=== PATIENT | male | born 1975 | race African-American/Black ===

== ENCOUNTER 2020-11-05 11:36 | Inpatient (IN) | payer OTHER ==
[2020-11-05 12:15] VITALS: BMI 20.2
[2020-11-05] MEDS ORDERED: MAGNESIUM CITRATE 300 ML BOTTLE PO PRN (14:08)
[2020-11-05] MEDS ORDERED: MAG HYDROX/AL HYDROX/SIMETH 30 ML UNIT-DOSE CUP PO PRN (14:08)
[2020-11-05] MEDS ORDERED: BISMUTH SUBSALICYLATE 262 MG/15 ML BTL PO PRN (14:08)
[2020-11-05] MEDS ORDERED: ACETAMINOPHEN 325 MG TABLET (FP) PO PRN ×2 (14:08)
[2020-11-05] MEDS ORDERED: IBUPROFEN 400 MG TABLET (FP) PO PRN (14:08)
[2020-11-05] MEDS ORDERED: ONDANSETRON *ODT* 4 MG TABLET SL PRN (14:08)
[2020-11-05] MEDS ORDERED: diazePAM 5 MG TABLET PO PRN (14:08)
[2020-11-05] MEDS ORDERED: MAGNESIUM HYDROX 2400MG/30ML ORAL SUSPENSION 30 ML CUP PO PRN (14:08)
[2020-11-05] MEDS ORDERED: METHOCARBAMOL 500 MG TABLET PO PRN (14:08)
[2020-11-05] MEDS ORDERED: MENTHOL/PHENOL 1 EACH UD MM PRN (14:08)
[2020-11-05] MEDS: NICOTINE 14 MG/24 HOURS TOPICAL PATCH TD SCH (15:49)
[2020-11-05] MEDS: PRENATAL VITAMINS W/ FOLIC ACID TABLET (FP) PO SCH (15:51)
[2020-11-05] MEDS: diazePAM 5 MG TABLET PO SCH ×2 (17:45→22:13)
[2020-11-05] MEDS: hydrOXYzine PAMOATE 25 MG CAPSULE (FP) PO SCH ×2 (17:46→23:13)
[2020-11-05] MEDS: THIAMINE HCL 100 MG TABLET (FP) PO SCH (22:13)
[2020-11-05] MEDS: MELATONIN 5 MG TABLETS PO SCH (23:12)
[2020-11-06] MEDS: hydrOXYzine PAMOATE 25 MG CAPSULE (FP) PO SCH ×5 (05:47→22:53)
[2020-11-06] MEDS: diazePAM 5 MG TABLET PO SCH ×4 (05:47→22:53)
[2020-11-06] MEDS: PRENATAL VITAMINS W/ FOLIC ACID TABLET (FP) PO SCH (10:22)
[2020-11-06] MEDS: NICOTINE 14 MG/24 HOURS TOPICAL PATCH TD SCH (10:23)
[2020-11-06 13:44] LABS: HEMATOCRIT 45.1 % (35.4-49); HEMOGLOBIN 14.9 GM/dL (11.7-16.9); MCH 32.1 pg (25.7-33.7); MCHC 33.1 g/dl (32.0-35.9); MEAN CELL VOLUME 96.9 fl (80-96); MEAN PLT VOLUME 11.2 fl (7.5-11.1); PLATELET COUNT 127 10^3/uL (134-434); RBC 4.65 M/mm3 (4.00-5.60); RDW 13.1 % (11.9-15.9); WHITE BLOOD COUNT 4.8 K/mm3 (4.0-10.0)
[2020-11-06 14:20] LABS: ALBUMIN 3.4 g/dl (3.4-5.0); BLOOD UREA NITROGEN 13.3 mg/dL (7-18); CALCIUM 8.6 mg/dL (8.5-10.1)
[2020-11-06 14:24] LABS: CREATININE 1.1 mg/dL (0.55-1.3)
[2020-11-06 14:25] LABS: BILIRUBIN,TOTAL 0.7 mg/dL (0.2-1); TOT PROT 6.5 g/dl (6.4-8.2)
[2020-11-06] MEDS: THIAMINE HCL 100 MG TABLET (FP) PO SCH (22:53)
[2020-11-06] MEDS: MELATONIN 5 MG TABLETS PO SCH (22:53)
[2020-11-07] MEDS: hydrOXYzine PAMOATE 25 MG CAPSULE (FP) PO SCH ×5 (06:11→22:11)
[2020-11-07] MEDS: diazePAM 5 MG TABLET PO SCH ×3 (06:11→22:10)
[2020-11-07] MEDS: PRENATAL VITAMINS W/ FOLIC ACID TABLET (FP) PO SCH (10:13)
[2020-11-07] MEDS: NICOTINE 10 MG CARTRIDGE (INHALER) IH PRN (10:13)
[2020-11-07] MEDS: NICOTINE 14 MG/24 HOURS TOPICAL PATCH TD SCH (10:13)
[2020-11-07] MEDS: THIAMINE HCL 100 MG TABLET (FP) PO SCH (22:10)
[2020-11-07] MEDS: MELATONIN 5 MG TABLETS PO SCH (22:11)
[2020-11-08] MEDS: hydrOXYzine PAMOATE 25 MG CAPSULE (FP) PO SCH ×5 (05:49→21:42)
[2020-11-08] MEDS: diazePAM 5 MG TABLET PO SCH ×2 (05:49→17:27)
[2020-11-08] MEDS: PRENATAL VITAMINS W/ FOLIC ACID TABLET (FP) PO SCH (10:07)
[2020-11-08] MEDS: NICOTINE 14 MG/24 HOURS TOPICAL PATCH TD SCH (10:07)
[2020-11-08] MEDS: THIAMINE HCL 100 MG TABLET (FP) PO SCH (21:42)
[2020-11-08] MEDS: MELATONIN 5 MG TABLETS PO SCH (21:42)
[2020-11-09] MEDS ORDERED: diazePAM 5 MG TABLET PO ONE (06:00)
[2020-11-09] MEDS: hydrOXYzine PAMOATE 25 MG CAPSULE (FP) PO SCH ×2 (06:02→10:33)
[2020-11-09 09:07] VITALS: BP 113/61; PULSE 62; TEMP 96.9
[2020-11-09] MEDS: PRENATAL VITAMINS W/ FOLIC ACID TABLET (FP) PO SCH (10:33)
[2020-11-09] MEDS: NICOTINE 14 MG/24 HOURS TOPICAL PATCH TD SCH (10:33)
[2020-11-09] MEDS: NICOTINE 10 MG CARTRIDGE (INHALER) IH PRN (10:34)
== END 2020-11-09 11:34 | disposition home or self-care (01) | DRG 774 ==
LOC: YASAS 11:36 → Y6N 14:50
PROVIDERS: ADMIT Allergy & Immunology; ATTEND Allergy & Immunology
PROC: HZ2ZZZZ Detoxification Services for Substance Abuse Treatment (ICD-10-PCS; principal; 2020-11-05)
DX: F10.230 Alcohol dependence with withdrawal, uncomplicated (principal); F14.20 Cocaine dependence, uncomplicated; F12.20 Cannabis dependence, uncomplicated; F17.210 Nicotine dependence, cigarettes, uncomplicated; F20.9 Schizophrenia, unspecified; D69.6 Thrombocytopenia, unspecified
CPT/HCPCS: 36415; 80053; 85027; 86780; 93005; 93010; C9803; U0003; U0005

== ENCOUNTER 2021-04-29 12:28 | Inpatient (IN) | payer OTHER ==
[2021-04-29] MEDS ORDERED: BISMUTH SUBSALICYLATE 262 MG/15 ML BTL PO PRN (13:15)
[2021-04-29] MEDS ORDERED: IBUPROFEN 400 MG TABLET (FP) PO PRN (13:15)
[2021-04-29] MEDS ORDERED: ACETAMINOPHEN 325 MG TABLET (FP) PO PRN ×2 (13:15)
[2021-04-29] MEDS ORDERED: NICOTINE 10 MG CARTRIDGE (INHALER) IH PRN (13:15)
[2021-04-29] MEDS ORDERED: MAG HYDROX/AL HYDROX/SIMETH 30 ML UNIT-DOSE CUP PO PRN (13:15)
[2021-04-29] MEDS ORDERED: chlordiazePOXIDE HCL 25 MG CAPSULE PO PRN (13:15)
[2021-04-29] MEDS ORDERED: MAGNESIUM CITRATE 300 ML BOTTLE PO PRN (13:15)
[2021-04-29] MEDS ORDERED: MENTHOL/PHENOL 1 EACH UD MM PRN (13:15)
[2021-04-29] MEDS ORDERED: ONDANSETRON *ODT* 4 MG TABLET SL PRN (13:15)
[2021-04-29] MEDS ORDERED: MAGNESIUM HYDROX 2400MG/30ML ORAL SUSPENSION 30 ML CUP PO PRN (13:15)
[2021-04-29 13:34] VITALS: BMI 19.8
[2021-04-29] MEDS ORDERED: hydrOXYzine PAMOATE 25 MG CAPSULE (FP) PO ONE (15:25)
[2021-04-29] MEDS: hydrOXYzine PAMOATE 25 MG CAPSULE (FP) PO SCH ×3 (15:28→22:41)
[2021-04-29] MEDS: PRENATAL VITAMINS W/ FOLIC ACID TABLET (FP) PO SCH (15:28)
[2021-04-29] MEDS: NICOTINE 14 MG/24 HOURS TOPICAL PATCH TD SCH (15:56)
[2021-04-29 17:01] LABS: HEMATOCRIT 45.9 % (35.4-49); HEMOGLOBIN 14.7 GM/dL (11.7-16.9); MCH 30.4 pg (25.7-33.7); MCHC 31.9 g/dl (32.0-35.9); MEAN CELL VOLUME 95.4 fl (80-96); MEAN PLT VOLUME 10.3 fl (7.5-11.1); PLATELET COUNT 175 10^3/uL (134-434); RBC 4.82 M/mm3 (4.00-5.60); RDW 13.6 % (11.9-15.9)
[2021-04-29 17:12] LABS: ALBUMIN 3.8 g/dl (3.4-5.0)
[2021-04-29 17:13] LABS: BLOOD UREA NITROGEN 13.7 mg/dL (7-18)
[2021-04-29 17:15] LABS: CREATININE 1.2 mg/dL (0.55-1.3)
[2021-04-29 17:18] LABS: BILIRUBIN,TOTAL 0.6 mg/dL (0.2-1); TOT PROT 7.2 g/dl (6.4-8.2)
[2021-04-29] MEDS: chlordiazePOXIDE HCL 25 MG CAPSULE PO SCH ×2 (18:20→22:41)
[2021-04-29] MEDS: THIAMINE HCL 100 MG TABLET (FP) PO SCH (22:41)
[2021-04-29] MEDS: MELATONIN 5 MG TABLETS PO SCH (22:41)
[2021-04-30] MEDS: hydrOXYzine PAMOATE 25 MG CAPSULE (FP) PO SCH ×5 (06:50→23:21)
[2021-04-30] MEDS: chlordiazePOXIDE HCL 25 MG CAPSULE PO SCH ×4 (06:50→23:21)
[2021-04-30] MEDS: ARIPiprazole 10 MG TABLET PO SCH (10:55)
[2021-04-30] MEDS: PRENATAL VITAMINS W/ FOLIC ACID TABLET (FP) PO SCH (10:55)
[2021-04-30] MEDS: METHOCARBAMOL 500 MG TABLET PO PRN (10:55)
[2021-04-30] MEDS: NICOTINE 14 MG/24 HOURS TOPICAL PATCH TD SCH (10:56)
[2021-04-30] MEDS: MELATONIN 5 MG TABLETS PO SCH (22:24)
[2021-04-30] MEDS: THIAMINE HCL 100 MG TABLET (FP) PO SCH (23:21)
[2021-05-01] MEDS: hydrOXYzine PAMOATE 25 MG CAPSULE (FP) PO SCH ×5 (06:26→22:40)
[2021-05-01] MEDS: chlordiazePOXIDE HCL 25 MG CAPSULE PO SCH ×4 (06:26→22:40)
[2021-05-01] MEDS: PRENATAL VITAMINS W/ FOLIC ACID TABLET (FP) PO SCH (10:43)
[2021-05-01] MEDS: METHOCARBAMOL 500 MG TABLET PO PRN ×2 (10:44→22:40)
[2021-05-01] MEDS: ARIPiprazole 10 MG TABLET PO SCH (10:45)
[2021-05-01] MEDS: NICOTINE 14 MG/24 HOURS TOPICAL PATCH TD SCH (10:45)
[2021-05-01] MEDS: MELATONIN 5 MG TABLETS PO SCH (22:40)
[2021-05-01] MEDS: THIAMINE HCL 100 MG TABLET (FP) PO SCH (22:40)
[2021-05-02] MEDS ORDERED: chlordiazePOXIDE HCL 10 MG CAPSULE PO PRN
[2021-05-02] MEDS: hydrOXYzine PAMOATE 25 MG CAPSULE (FP) PO SCH ×5 (06:06→22:16)
[2021-05-02] MEDS: chlordiazePOXIDE HCL 10 MG CAPSULE PO SCH ×4 (06:06→22:16)
[2021-05-02] MEDS: METHOCARBAMOL 500 MG TABLET PO PRN (10:19)
[2021-05-02] MEDS: PRENATAL VITAMINS W/ FOLIC ACID TABLET (FP) PO SCH (10:19)
[2021-05-02] MEDS: ARIPiprazole 10 MG TABLET PO SCH (10:19)
[2021-05-02] MEDS: NICOTINE 14 MG/24 HOURS TOPICAL PATCH TD SCH (10:20)
[2021-05-02] MEDS: THIAMINE HCL 100 MG TABLET (FP) PO SCH (22:16)
[2021-05-02] MEDS: MELATONIN 5 MG TABLETS PO SCH (22:16)
[2021-05-03] MEDS: hydrOXYzine PAMOATE 25 MG CAPSULE (FP) PO SCH ×5 (05:38→22:33)
[2021-05-03] MEDS: chlordiazePOXIDE HCL 10 MG CAPSULE PO SCH ×2 (05:39→17:59)
[2021-05-03] MEDS: NICOTINE 14 MG/24 HOURS TOPICAL PATCH TD SCH (10:24)
[2021-05-03] MEDS: PRENATAL VITAMINS W/ FOLIC ACID TABLET (FP) PO SCH (10:24)
[2021-05-03] MEDS: ARIPiprazole 10 MG TABLET PO SCH (10:24)
[2021-05-03] MEDS: METHOCARBAMOL 500 MG TABLET PO PRN (10:25)
[2021-05-03] MEDS: THIAMINE HCL 100 MG TABLET (FP) PO SCH (22:33)
[2021-05-03] MEDS: MELATONIN 5 MG TABLETS PO SCH (22:33)
[2021-05-04] MEDS ORDERED: chlordiazePOXIDE HCL 10 MG CAPSULE PO ONE (05:00)
[2021-05-04] MEDS: hydrOXYzine PAMOATE 25 MG CAPSULE (FP) PO SCH ×2 (06:12→10:52)
[2021-05-04] MEDS: PRENATAL VITAMINS W/ FOLIC ACID TABLET (FP) PO SCH (10:51)
[2021-05-04] MEDS: NICOTINE 14 MG/24 HOURS TOPICAL PATCH TD SCH (10:52)
[2021-05-04] MEDS: ARIPiprazole 10 MG TABLET PO SCH (10:52)
[2021-05-04 12:52] VITALS: BP 120/67; PULSE 73; TEMP 98.1
== END 2021-05-04 12:55 | disposition other institution (70) | DRG 774 ==
LOC: YASAS 12:28 → Y6N 15:02
PROVIDERS: ADMIT Allergy & Immunology; ATTEND Allergy & Immunology
PROC: HZ2ZZZZ Detoxification Services for Substance Abuse Treatment (ICD-10-PCS; principal; 2021-04-29)
DX: F10.230 Alcohol dependence with withdrawal, uncomplicated (principal); F14.20 Cocaine dependence, uncomplicated; F12.20 Cannabis dependence, uncomplicated; F17.210 Nicotine dependence, cigarettes, uncomplicated; F20.9 Schizophrenia, unspecified; Z56.0 Unemployment, unspecified
CPT/HCPCS: 36415; 80053; 85027; 86780; C9803; U0003; U0005

== ENCOUNTER 2021-05-04 13:01 | Inpatient (IN) | payer OTHER ==
[2021-05-04] MEDS ORDERED: NICOTINE POLACRILEX 2 MG GUM BUC PRN (14:22)
[2021-05-04] MEDS ORDERED: LOPERAMIDE HCL 2 MG CAPSULE PO PRN (14:22)
[2021-05-04] MEDS ORDERED: IBUPROFEN 400 MG TABLET (FP) PO PRN (14:22)
[2021-05-04] MEDS ORDERED: MAGNESIUM HYDROX 2400MG/30ML ORAL SUSPENSION 30 ML CUP PO PRN (14:22)
[2021-05-04] MEDS ORDERED: P-EPHED 60MG/TRIPROLIDI 2.5MG TABLET PO PRN (14:22)
[2021-05-04] MEDS ORDERED: MAG HYDROX/AL HYDROX/SIMETH 30 ML UNIT-DOSE CUP PO PRN (14:22)
[2021-05-04] MEDS ORDERED: guaiFENesin 200 MG/10 ML 10 ML UNIT-DOSE CUPS PO PRN (14:22)
[2021-05-04] MEDS ORDERED: hydrOXYzine PAMOATE 25 MG CAPSULE (FP) PO PRN (14:22)
[2021-05-04] MEDS ORDERED: MAGNESIUM CITRATE 300 ML BOTTLE PO PRN (14:22)
[2021-05-04] MEDS ORDERED: ACETAMINOPHEN 325 MG TABLET (FP) PO PRN (14:22)
[2021-05-04] MEDS: MELATONIN 5 MG TABLETS PO SCH (21:24)
[2021-05-04] MEDS: THIAMINE HCL 100 MG TABLET (FP) PO SCH (21:24)
[2021-05-05] MEDS ORDERED: ARIPiprazole 5 MG TABLET ONE (08:43)
[2021-05-05] MEDS: NICOTINE 14 MG/24 HOURS TOPICAL PATCH TD SCH (09:56)
[2021-05-05] MEDS: ARIPiprazole 10 MG TABLET PO SCH (09:56)
[2021-05-05] MEDS: PRENATAL VITAMINS W/ FOLIC ACID TABLET (FP) PO SCH (09:56)
[2021-05-05] MEDS: NICOTINE 10 MG CARTRIDGE (INHALER) IH PRN (10:00)
[2021-05-05 12:53] LABS: HIV INTERPRETATION NEGATIVE (NEGATIVE)
[2021-05-05] MEDS: MELATONIN 5 MG TABLETS PO SCH (21:21)
[2021-05-05] MEDS: THIAMINE HCL 100 MG TABLET (FP) PO SCH (21:21)
[2021-05-06] MEDS ORDERED: ARIPiprazole 5 MG TABLET ONE (09:01)
[2021-05-06] MEDS: PRENATAL VITAMINS W/ FOLIC ACID TABLET (FP) PO SCH (09:44)
[2021-05-06] MEDS: ARIPiprazole 10 MG TABLET PO SCH (09:44)
[2021-05-06] MEDS: NICOTINE 14 MG/24 HOURS TOPICAL PATCH TD SCH (09:45)
[2021-05-06] MEDS: THIAMINE HCL 100 MG TABLET (FP) PO SCH (21:15)
[2021-05-06] MEDS: MELATONIN 5 MG TABLETS PO SCH (21:15)
[2021-05-07] MEDS ORDERED: ARIPiprazole 5 MG TABLET ONE (08:21)
[2021-05-07] MEDS: ARIPiprazole 10 MG TABLET PO SCH (09:51)
[2021-05-07] MEDS: PRENATAL VITAMINS W/ FOLIC ACID TABLET (FP) PO SCH (09:52)
[2021-05-07] MEDS: NICOTINE 14 MG/24 HOURS TOPICAL PATCH TD SCH (09:52)
[2021-05-07] MEDS: MELATONIN 5 MG TABLETS PO SCH (21:23)
[2021-05-07] MEDS: THIAMINE HCL 100 MG TABLET (FP) PO SCH (21:23)
[2021-05-08] MEDS ORDERED: ARIPiprazole 5 MG TABLET ONE (09:07)
[2021-05-08] MEDS: ARIPiprazole 10 MG TABLET PO SCH (09:47)
[2021-05-08] MEDS: NICOTINE 14 MG/24 HOURS TOPICAL PATCH TD SCH (09:48)
[2021-05-08] MEDS: PRENATAL VITAMINS W/ FOLIC ACID TABLET (FP) PO SCH (09:48)
[2021-05-08 12:08] LABS: SARS-CoV-2 NAA Not Detected (Not Detected)
[2021-05-08] MEDS: THIAMINE HCL 100 MG TABLET (FP) PO SCH (21:37)
[2021-05-08] MEDS: MELATONIN 5 MG TABLETS PO SCH (21:37)
[2021-05-09] MEDS ORDERED: ARIPiprazole 5 MG TABLET ONE (08:18)
[2021-05-09] MEDS: ARIPiprazole 10 MG TABLET PO SCH (09:44)
[2021-05-09] MEDS: PRENATAL VITAMINS W/ FOLIC ACID TABLET (FP) PO SCH (09:44)
[2021-05-09] MEDS: NICOTINE 14 MG/24 HOURS TOPICAL PATCH TD SCH (09:44)
[2021-05-09] MEDS: NICOTINE 10 MG CARTRIDGE (INHALER) IH PRN (09:45)
[2021-05-09] MEDS: THIAMINE HCL 100 MG TABLET (FP) PO SCH (21:20)
[2021-05-09] MEDS: MELATONIN 5 MG TABLETS PO SCH (21:20)
[2021-05-10] MEDS ORDERED: ARIPiprazole 5 MG TABLET ONE (08:11)
[2021-05-10] MEDS: PRENATAL VITAMINS W/ FOLIC ACID TABLET (FP) PO SCH (09:29)
[2021-05-10] MEDS: NICOTINE 14 MG/24 HOURS TOPICAL PATCH TD SCH (09:29)
[2021-05-10] MEDS: ARIPiprazole 10 MG TABLET PO SCH (09:29)
[2021-05-10] MEDS: THIAMINE HCL 100 MG TABLET (FP) PO SCH (21:26)
[2021-05-10] MEDS: MELATONIN 5 MG TABLETS PO SCH (21:26)
[2021-05-11] MEDS ORDERED: ARIPiprazole 5 MG TABLET ONE (08:59)
[2021-05-11] MEDS: PRENATAL VITAMINS W/ FOLIC ACID TABLET (FP) PO SCH (09:47)
[2021-05-11] MEDS: ARIPiprazole 10 MG TABLET PO SCH (09:48)
[2021-05-11] MEDS: NICOTINE 14 MG/24 HOURS TOPICAL PATCH TD SCH (09:48)
[2021-05-11] MEDS: NICOTINE 10 MG CARTRIDGE (INHALER) IH PRN (17:42)
[2021-05-11] MEDS: MELATONIN 5 MG TABLETS PO SCH (21:34)
[2021-05-11] MEDS: THIAMINE HCL 100 MG TABLET (FP) PO SCH (21:34)
[2021-05-12] MEDS ORDERED: ARIPiprazole 5 MG TABLET ONE (08:50)
[2021-05-12] MEDS: PRENATAL VITAMINS W/ FOLIC ACID TABLET (FP) PO SCH (09:44)
[2021-05-12] MEDS: ARIPiprazole 10 MG TABLET PO SCH (09:45)
[2021-05-12] MEDS: NICOTINE 14 MG/24 HOURS TOPICAL PATCH TD SCH (09:45)
[2021-05-12] MEDS: THIAMINE HCL 100 MG TABLET (FP) PO SCH (21:35)
[2021-05-12] MEDS: MELATONIN 5 MG TABLETS PO SCH (21:35)
[2021-05-13] MEDS ORDERED: ARIPiprazole 5 MG TABLET ONE (08:22)
[2021-05-13] MEDS: PRENATAL VITAMINS W/ FOLIC ACID TABLET (FP) PO SCH (09:58)
[2021-05-13] MEDS: ARIPiprazole 10 MG TABLET PO SCH (09:58)
[2021-05-13] MEDS: NICOTINE 14 MG/24 HOURS TOPICAL PATCH TD SCH (09:58)
[2021-05-13] MEDS: THIAMINE HCL 100 MG TABLET (FP) PO SCH (21:30)
[2021-05-13] MEDS: MELATONIN 5 MG TABLETS PO SCH (21:30)
[2021-05-14] MEDS ORDERED: ARIPiprazole 5 MG TABLET ONE (08:16)
[2021-05-14] MEDS: ARIPiprazole 10 MG TABLET PO SCH (09:44)
[2021-05-14] MEDS: NICOTINE 14 MG/24 HOURS TOPICAL PATCH TD SCH (09:44)
[2021-05-14] MEDS: PRENATAL VITAMINS W/ FOLIC ACID TABLET (FP) PO SCH (09:44)
[2021-05-14] MEDS: MELATONIN 5 MG TABLETS PO SCH (21:42)
[2021-05-14] MEDS: THIAMINE HCL 100 MG TABLET (FP) PO SCH (21:42)
[2021-05-15] MEDS ORDERED: ARIPiprazole 5 MG TABLET ONE (08:17)
[2021-05-15] MEDS: ARIPiprazole 10 MG TABLET PO SCH (10:00)
[2021-05-15] MEDS: PRENATAL VITAMINS W/ FOLIC ACID TABLET (FP) PO SCH (10:01)
[2021-05-15] MEDS: NICOTINE 14 MG/24 HOURS TOPICAL PATCH TD SCH (10:01)
[2021-05-15] MEDS: NICOTINE 10 MG CARTRIDGE (INHALER) IH PRN (22:20)
[2021-05-15] MEDS: MELATONIN 5 MG TABLETS PO SCH (22:20)
[2021-05-15] MEDS: THIAMINE HCL 100 MG TABLET (FP) PO SCH (22:21)
[2021-05-16] MEDS ORDERED: ARIPiprazole 5 MG TABLET ONE (09:02)
[2021-05-16] MEDS: PRENATAL VITAMINS W/ FOLIC ACID TABLET (FP) PO SCH (09:51)
[2021-05-16] MEDS: ARIPiprazole 10 MG TABLET PO SCH (09:51)
[2021-05-16] MEDS: NICOTINE 14 MG/24 HOURS TOPICAL PATCH TD SCH (09:51)
[2021-05-16] MEDS: MELATONIN 5 MG TABLETS PO SCH (21:22)
[2021-05-16] MEDS: THIAMINE HCL 100 MG TABLET (FP) PO SCH (21:22)
[2021-05-17] MEDS: NICOTINE 14 MG/24 HOURS TOPICAL PATCH TD SCH (09:51)
[2021-05-17] MEDS: PRENATAL VITAMINS W/ FOLIC ACID TABLET (FP) PO SCH (09:51)
[2021-05-17] MEDS: ARIPiprazole 10 MG TABLET PO SCH (09:51)
[2021-05-17] MEDS: MELATONIN 5 MG TABLETS PO SCH (21:02)
[2021-05-17] MEDS: THIAMINE HCL 100 MG TABLET (FP) PO SCH (21:02)
[2021-05-18] MEDS: PRENATAL VITAMINS W/ FOLIC ACID TABLET (FP) PO SCH (09:42)
[2021-05-18] MEDS: ARIPiprazole 10 MG TABLET PO SCH (09:42)
[2021-05-18] MEDS: NICOTINE 14 MG/24 HOURS TOPICAL PATCH TD SCH (09:42)
[2021-05-18] MEDS: THIAMINE HCL 100 MG TABLET (FP) PO SCH (21:05)
[2021-05-18] MEDS: MELATONIN 5 MG TABLETS PO SCH (21:05)
[2021-05-19] MEDS: PRENATAL VITAMINS W/ FOLIC ACID TABLET (FP) PO SCH (09:41)
[2021-05-19] MEDS: ARIPiprazole 10 MG TABLET PO SCH (09:41)
[2021-05-19] MEDS: NICOTINE 14 MG/24 HOURS TOPICAL PATCH TD SCH (09:41)
[2021-05-19] MEDS: MELATONIN 5 MG TABLETS PO SCH (21:34)
[2021-05-19] MEDS: THIAMINE HCL 100 MG TABLET (FP) PO SCH (21:34)
[2021-05-20] MEDS ORDERED: ARIPiprazole 5 MG TABLET ONE (08:17)
[2021-05-20] MEDS: PRENATAL VITAMINS W/ FOLIC ACID TABLET (FP) PO SCH (09:47)
[2021-05-20] MEDS: ARIPiprazole 10 MG TABLET PO SCH (09:47)
[2021-05-20] MEDS: NICOTINE 14 MG/24 HOURS TOPICAL PATCH TD SCH (09:47)
[2021-05-20] MEDS: MELATONIN 5 MG TABLETS PO SCH (21:29)
[2021-05-20] MEDS: THIAMINE HCL 100 MG TABLET (FP) PO SCH (21:29)
[2021-05-21] MEDS ORDERED: ARIPiprazole 5 MG TABLET ONE (08:18)
[2021-05-21] MEDS: ARIPiprazole 10 MG TABLET PO SCH (09:56)
[2021-05-21] MEDS: NICOTINE 14 MG/24 HOURS TOPICAL PATCH TD SCH (09:57)
[2021-05-21] MEDS: PRENATAL VITAMINS W/ FOLIC ACID TABLET (FP) PO SCH (09:57)
[2021-05-21] MEDS: THIAMINE HCL 100 MG TABLET (FP) PO SCH (21:37)
[2021-05-21] MEDS: MELATONIN 5 MG TABLETS PO SCH (21:37)
[2021-05-22] MEDS: NICOTINE 14 MG/24 HOURS TOPICAL PATCH TD SCH (09:47)
[2021-05-22] MEDS: ARIPiprazole 10 MG TABLET PO SCH (09:47)
[2021-05-22] MEDS: PRENATAL VITAMINS W/ FOLIC ACID TABLET (FP) PO SCH (09:48)
[2021-05-22] MEDS: MELATONIN 5 MG TABLETS PO SCH (21:10)
[2021-05-22] MEDS: THIAMINE HCL 100 MG TABLET (FP) PO SCH (21:10)
[2021-05-23] MEDS ORDERED: ARIPiprazole 5 MG TABLET ONE (08:16)
[2021-05-23] MEDS: NICOTINE 14 MG/24 HOURS TOPICAL PATCH TD SCH (09:44)
[2021-05-23] MEDS: PRENATAL VITAMINS W/ FOLIC ACID TABLET (FP) PO SCH (09:44)
[2021-05-23] MEDS: ARIPiprazole 10 MG TABLET PO SCH (09:44)
[2021-05-23] MEDS: THIAMINE HCL 100 MG TABLET (FP) PO SCH (21:23)
[2021-05-23] MEDS: MELATONIN 5 MG TABLETS PO SCH (21:23)
[2021-05-23] MEDS: NICOTINE 10 MG CARTRIDGE (INHALER) IH PRN (22:31)
[2021-05-24] MEDS ORDERED: ARIPiprazole 5 MG TABLET ONE (08:29)
[2021-05-24] MEDS: NICOTINE 14 MG/24 HOURS TOPICAL PATCH TD SCH (09:43)
[2021-05-24] MEDS: PRENATAL VITAMINS W/ FOLIC ACID TABLET (FP) PO SCH (09:43)
[2021-05-24] MEDS: ARIPiprazole 10 MG TABLET PO SCH (09:43)
[2021-05-24] MEDS: THIAMINE HCL 100 MG TABLET (FP) PO SCH (21:20)
[2021-05-24] MEDS: MELATONIN 5 MG TABLETS PO SCH (21:20)
[2021-05-25] MEDS ORDERED: ARIPiprazole 5 MG TABLET ONE (08:55)
[2021-05-25] MEDS: NICOTINE 14 MG/24 HOURS TOPICAL PATCH TD SCH (09:57)
[2021-05-25] MEDS: ARIPiprazole 10 MG TABLET PO SCH (09:57)
[2021-05-25] MEDS: PRENATAL VITAMINS W/ FOLIC ACID TABLET (FP) PO SCH (09:58)
[2021-05-25] MEDS: MELATONIN 5 MG TABLETS PO SCH (21:25)
[2021-05-25] MEDS: THIAMINE HCL 100 MG TABLET (FP) PO SCH (21:26)
[2021-05-26] MEDS ORDERED: ARIPiprazole 5 MG TABLET ONE (09:18)
[2021-05-26] MEDS: ARIPiprazole 10 MG TABLET PO SCH (10:02)
[2021-05-26] MEDS: NICOTINE 14 MG/24 HOURS TOPICAL PATCH TD SCH (10:03)
[2021-05-26] MEDS: PRENATAL VITAMINS W/ FOLIC ACID TABLET (FP) PO SCH (10:03)
[2021-05-26] MEDS: NICOTINE 10 MG CARTRIDGE (INHALER) IH PRN (17:37)
[2021-05-26] MEDS: MELATONIN 5 MG TABLETS PO SCH (21:39)
[2021-05-26] MEDS: THIAMINE HCL 100 MG TABLET (FP) PO SCH (21:39)
[2021-05-27] MEDS: NICOTINE 14 MG/24 HOURS TOPICAL PATCH TD SCH (09:57)
[2021-05-27] MEDS: ARIPiprazole 10 MG TABLET PO SCH (09:57)
[2021-05-27] MEDS: PRENATAL VITAMINS W/ FOLIC ACID TABLET (FP) PO SCH (09:57)
[2021-05-27] MEDS: MELATONIN 5 MG TABLETS PO SCH (21:45)
[2021-05-27] MEDS: THIAMINE HCL 100 MG TABLET (FP) PO SCH (21:45)
[2021-05-28] MEDS ORDERED: ARIPiprazole 5 MG TABLET ONE (08:17)
[2021-05-28] MEDS: NICOTINE 14 MG/24 HOURS TOPICAL PATCH TD SCH (09:53)
[2021-05-28] MEDS: PRENATAL VITAMINS W/ FOLIC ACID TABLET (FP) PO SCH (09:53)
[2021-05-28] MEDS: ARIPiprazole 10 MG TABLET PO SCH (09:53)
[2021-05-28] MEDS: THIAMINE HCL 100 MG TABLET (FP) PO SCH (21:21)
[2021-05-28] MEDS: MELATONIN 5 MG TABLETS PO SCH (21:21)
[2021-05-29] MEDS: ARIPiprazole 10 MG TABLET PO SCH (09:53)
[2021-05-29] MEDS: PRENATAL VITAMINS W/ FOLIC ACID TABLET (FP) PO SCH (09:54)
[2021-05-29] MEDS: NICOTINE 14 MG/24 HOURS TOPICAL PATCH TD SCH (09:54)
[2021-05-29] MEDS: MELATONIN 5 MG TABLETS PO SCH (21:16)
[2021-05-29] MEDS: THIAMINE HCL 100 MG TABLET (FP) PO SCH (21:16)
[2021-05-30] MEDS: NICOTINE 14 MG/24 HOURS TOPICAL PATCH TD SCH (10:03)
[2021-05-30] MEDS: PRENATAL VITAMINS W/ FOLIC ACID TABLET (FP) PO SCH (10:03)
[2021-05-30] MEDS: ARIPiprazole 10 MG TABLET PO SCH (10:03)
[2021-05-30] MEDS: NICOTINE 10 MG CARTRIDGE (INHALER) IH PRN (17:16)
[2021-05-30] MEDS: THIAMINE HCL 100 MG TABLET (FP) PO SCH (21:19)
[2021-05-30] MEDS: MELATONIN 5 MG TABLETS PO SCH (21:19)
[2021-05-31] MEDS: ARIPiprazole 10 MG TABLET PO SCH (09:56)
[2021-05-31] MEDS: PRENATAL VITAMINS W/ FOLIC ACID TABLET (FP) PO SCH (09:56)
[2021-05-31] MEDS: NICOTINE 14 MG/24 HOURS TOPICAL PATCH TD SCH (09:57)
[2021-05-31] MEDS: NICOTINE 10 MG CARTRIDGE (INHALER) IH PRN (18:31)
[2021-05-31] MEDS: THIAMINE HCL 100 MG TABLET (FP) PO SCH (21:25)
[2021-05-31] MEDS: MELATONIN 5 MG TABLETS PO SCH (21:25)
[2021-06-01 06:48] VITALS: BP 116/73; PULSE 75; TEMP 97.1
[2021-06-01] MEDS ORDERED: ARIPiprazole 5 MG TABLET ONE (08:38)
[2021-06-01] MEDS: ARIPiprazole 10 MG TABLET PO SCH (09:12)
[2021-06-01] MEDS: PRENATAL VITAMINS W/ FOLIC ACID TABLET (FP) PO SCH (09:12)
[2021-06-01] MEDS: NICOTINE 14 MG/24 HOURS TOPICAL PATCH TD SCH (09:12)
== END 2021-06-01 09:36 | disposition home or self-care (01) | DRG 772 ==
LOC: YASAS 13:01 → Y3E 13:03
PROVIDERS: ADMIT Allergy & Immunology; ATTEND Allergy & Immunology
PROC: HZ42ZZZ Group Counseling for Substance Abuse Treatment, Cognitive-Behavioral (ICD-10-PCS; principal; 2021-05-04)
DX: F10.20 Alcohol dependence, uncomplicated (principal); F14.20 Cocaine dependence, uncomplicated; F12.20 Cannabis dependence, uncomplicated; F17.210 Nicotine dependence, cigarettes, uncomplicated
CPT/HCPCS: 36415; 87389; C9803; U0003; U0005